=== PATIENT | male | born 2005 | race Caucasian/White ===

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

== ENCOUNTER 2023-04-15 11:11 | Day surgery (SDC) | payer MEDICAID, SELFPAY ==
[2023-04-15] MEDS: Lactated Ringers 1,000 ML 15 ML IV (11:50)
[2023-04-15 11:51] VITALS: BP 120/63; PULSE 76; RESP 18; TEMP 37; O2SAT 97; BMI 18.9
[2023-04-15] MEDS: Cefazolin 2 GM in 0.9% Normal Saline 100 ML IV (15:03)
[2023-04-15] MEDS: Bupivacaine Mpf 0.5% 30 ML VIAL (15:49)
[2023-04-15] MEDS: Lidocaine 1% /Epi 1:100 (20ml) 20 ML Vial (15:50)
[2023-04-15 16:15] VITALS: BP 118/67; BP 120/63; PULSE 84; RESP 16; TEMP 36.4; O2SAT 100
[2023-04-15 16:30] VITALS: BP 118/64; BP 120/63; PULSE 54; RESP 16; O2SAT 100
[2023-04-15 16:39] VITALS: BP 120/63; BP 138/61; PULSE 64; RESP 18; TEMP 36.2; O2SAT 100
[2023-04-15 17:07] VITALS: BP 120/63
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
== END 2023-04-15 17:13 | disposition home or self-care (01) ==
LOC: SDC 11:15 → AC 11:16
PROVIDERS: PCP Nurse Practitioner Family; Referring Provider Student in an Organized Health Care Education/Training Program; Visit Provider Student in an Organized Health Care Education/Training Program
PROC: (CPT 24105; principal; 2023-04-15 12:45)
DX: M71.121 Other infective bursitis, right elbow (principal); L03.113 Cellulitis of right upper limb; S50.01XA Contusion of right elbow, initial encounter
CPT/HCPCS: 24105; 01710; J7120; J2405

== ENCOUNTER 2024-07-01 20:32 | Emergency (ER) | payer OTHER, SELFPAY ==
[2024-07-01 20:33] VITALS: BP 128/73; PULSE 66; RESP 16; TEMP 36.6; O2SAT 98; BMI 19.3
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
--- NOTE | 2024-07-01 21:00 | RAD_ITS ---
INDICATION: trauma EXAMINATION/TECHNIQUE: X-RAY - LEFT XR Foot Min 3 Views COMPARISON: None. FINDINGS: No acute fracture or malalignment. No blastic or lytic lesions. No degenerative changes are seen. Soft tissue laceration. RAD/Foot min 3 Views IMPRESSION: No acute radiographic abnormalities. Electronically Signed: Rj Ziegler MD at 21:59 EDT ,
[2024-07-01] MEDS: Ibuprofen 600 MG Tablet PO (21:27)
== END 2024-07-01 21:31 | disposition home or self-care (01) ==
PROVIDERS: Emergency Provider Emergency Medicine; Visit Provider Emergency Medicine
DX: S90.32XA Contusion of left foot, initial encounter (principal); W23.0XXA Caught, crushed, jammed, or pinched between moving objects, initial encounter; Y93.55 Activity, bike riding
CPT/HCPCS: 73630; 99282